=== PATIENT | female | born 1990 | race Two or more races ===

== ENCOUNTER 2024-07-23 21:32 | Emergency (ER) | payer SELFPAY ==
--- NOTE | ~2024-07-23 | CT_ITS ---
CLINICAL INDICATION: Abdominal and back pain COMPARISON: None. TECHNIQUE: Multiple contiguous axial images of the abdomen and pelvis were performed following the ad ministration of with 100 mL Omnipaque-350 intravenous contrast The dose-length product (DLP) was 259.62 mGy-cm. Automated exposure control and iterative reconstruction technique were employed. FINDINGS/OBSERVATIONS: Visualized lower thorax: The bilateral lung bases are clear. The heart is of normal size, without pericardial effusion. Liver: The liver enhances homogeneously and is not enlarged measuring 16 cm in longitudinal dimension. Gallbladder and biliary system: The gallbladder is surgically absent. Pancreas: The pancreas enhances homogeneously without ductal dilatation. Spleen: The spleen enhances homogeneously and is not enlarged measuring 6 cm in longitudinal dimension. Kidneys: The bilateral kidneys enhance symmetrically without hydronephrosis or renal calculi. Adrenal glands: Unremarkable. Gastrointestinal tract: Multiple loops of fluid-filled small bowel with hyperreninemia and trace surrounding inflammatory adrianna nge, findings suggestive of a small bowel enteritis. The colon also is primarily fluid-filled but otherwise unremarkable. Appendix: The appendix is of normal caliber (axial series, image 112). Vasculature: Unremarkable. Lymph nodes: No pathologically enlarged or morphologically suspicious lymph nodes within the retroperitoneum or at the root of the mesentery. Pelvic structures: The bladder is decompressed. The uterus is anteverted and anteflexed, and otherwise unremarkable. Body wall and musculoskeletal: Small fat-containing umbilical hernia. No significant degenerative disease within the lower thoracic or lumbosacral spine. IMPRESSION: Findings suggesting a small bowel enteritis, as detailed above. Reviewed, dictated and finalized at location A. ING DIES FINAL FINISHER
[2024-07-23 21:38] VITALS: BP 104/83; PULSE 109; RESP 16; TEMP 36.7; O2SAT 100
[2024-07-23 22:00] LABS: Basophils Percent Auto 0.1 % (0.2-1.2); Hematocrit 41.9 % (37.0-47.0); Hemoglobin 14.8 g/dL (12.0-15.0); Immature Granulocyte Absolute 0.01 K/mm3 (0.00-0.031); Immature Granulocyte Percent A 0.1 % (0-0.5); Lymphocytes Absolute Auto 0.51 K/mm3 (0.9-3.2); Lymphocytes Percent Auto 5.7 % (18.3-44.2); Mean Corpuscular HGB Conc 35.3 g/dl (32-36); Mean Corpuscular Hemoglobin 31.8 pg (26-34); Mean Corpuscular Volume 90.1 fl (80-100); Monocytes Absolute Auto 0.3 K/mm3 (0.1-0.6); Monocytes Percent Auto 2.8 % (2.6-8.5); Neutrophils Absolute Auto 8.1 K/mm3 (1.3-6.7); Neutrophils Percent Auto 91.3 % (45.5-73.1); Platelet Count Result 218 k/mm3 (150-375); Red Blood Count 4.65 M/mm3 (4.2-5.4); Red Cell Distribution Width 11.6 % (11.5-14.5); White Blood Count 8.9 K/mm3 (4.5-10.0)
[2024-07-23 22:09] LABS: Alanine Aminotransferase 16 U/L (6-35); Albumin Level 4.6 g/dL (3.5-5.1); Alkaline Phosphatase 64 U/L (38-126); Anion Gap 13 mmol/L (4-12); Aspartate Amino Transferase 20 U/L (14-36); Bilirubin,Total 1.6 mg/dL (0.2-1.3); Blood Urea Nitrogen 12 mg/dL (7-17); Calcium 9.1 mg/dL (8.4-10.2); Carbon Dioxide 22 mmol/L (22-30); Chloride 103 mmol/L (98-107); Estimated Glomerular Filt Rate > 60; Glucose 119 mg/dL (65-110); Lipase 30 U/L (23-300); Potassium 3.8 mmol/L (3.4-5.0); Sodium 138 mmol/L (137-145)
--- NOTE | 2024-07-23 22:22 | ED_ITS ---
HPI - Abdominal Pain General Chief Complaint: Abdominal Pain Stated Complaint: Back/Abdominal pain N/V/D Time Seen by Provider: 07/23/24 21:51 Source: patient Mode of arrival: ambulatory Limitations: no limitations History of Present Illness HPI narrative: This is a 34 year old female that presents to the ER for abdominal pain. Ongoing since yesterday. Reports associated vomiting, diarrhea back pain. Also reports myalgias. Denies fevers. Related Data Allergies Allergy/AdvReac Type Severity Reaction Status Date / Time No Known Allergies Allergy Verified 07/23/24 21:36 Review of Systems 2 Review of Systems: CONSTITUTIONAL: Denies fever GASTROINTESTINAL: Reports abdominal pain, nausea, vomiting, and diarrhea. GENITOURINARY: Denies dysuria or hematuria. All systems reviewed & are unremarkable except as noted in HPI and below PMFSH Past Medical History Medical History (Updated 07/24/24 @ 00:19 by Chelsey Rosa PA-C) No active medical problems Surgical History Surgical History (Updated 07/23/24 @ 22:24 by Chelsey Rosa PA-C) History of cholecystectomy Social History Social History (Updated 07/23/24 @ 22:23 by Chelsey Rosa PA-C) Smoking status: Never smoker Exam 2 Narrative: GENERAL: Uncomfortable, well-nourished, and in no acute distress. HEAD: Normocephalic, atraumatic. EYES: EOMI. CHEST: Clear to auscultation. No respiratory distress. No wheezes rales or rhonchi HEART: Regular rate and rhythm. No murmur heard. Normal peripheral pulses. ABDOMEN: Soft, nondistended, normal active bowel sounds. Tender to palpation throughout the abdomen, without guarding EXTREMITIES: Normal range of motion. No edema. SKIN: Warm, dry, no rash. NEURO: No focal deficits. Alert and oriented x3. PSYCH: Normal mood and affect Course Course Emergency Course: Patient and family updated on workup and agree with plan of care Vital Signs Vital signs: Vital Signs Temperature 98.1 F 07/23/24 21:38 Pulse Rate 109 H 07/23/24 21:38 Respiratory Rate 16 07/23/24 21:38 Blood Pressure 104/83 07/23/24 21:38 Pulse Oximetry 100 07/23/24 21:38 Oxygen Delivery Autopap 07/23/24 21:38 Temperature 98.1 F 07/23/24 21:38 Pulse Rate 109 H 07/23/24 21:38 Respiratory Rate 16 07/23/24 21:38 Blood Pressure 104/83 07/23/24 21:38 Pulse Oximetry 100 07/23/24 21:38 Oxygen Delivery Autopap 07/23/24 21:38 MDM - Abdominal Pain MDM Narrative Medical decision making narrative: Patient presents to the emergency department for abdominal pain, nausea vomiting. She is afebrile and nontoxic appearing. Tachycardic upon arrival, this normalized with IV fluids. Cbc without leukocytosis. Metabolic panel without concerning findings. Urine without evidence of infection. Red blood cells due to patient currently being on her menstrual cycle. CT abdomen and pelvis shows findings of likely gastroenteritis. Patient hydrated with IV fluids and given antiemetic with relief. Updated on her workup. Agrees with plan of care. She is to follow up with primary provider. She was given warnings to return to the ER Differential Diagnosis Differential diagnosis: Likely abdominal pain, acute appendicitis, calculus of kidney, gastroenteritis and other (uti) Lab Data Attestation: I reviewed the patient's lab results. 07/23/24 21:52 07/23/24 21:52 Labs: Lab Results 07/23/24 Range/Units 21:52 WBC 8.9 (4.5-10.0) K/mm3 RBC 4.65 (4.2-5.4) M/mm3 Hgb 14.8 (12.0-15.0) g/dL Hct 41.9 (37.0-47.0) % MCV 90.1 (80-100) fl MCH 31.8 (26-34) pg MCHC 35.3 (32-36) g/dl RDW 11.6 (11.5-14.5) % Plt Count 218 (150-375) k/mm3 MPV 9.0 (7.4-10.4) fl Immature Gran % (Auto) 0.1 (0-0.5) % Neut % (Auto) 91.3 H (45.5-73.1) % Lymph % (Auto) 5.7 L (18.3-44.2) % [place] % (Auto) 2.8 (2.6-8.5) % Eos % (Auto) 0.0 (0-4.4) % Baso % (Auto) 0.1 L (0.2-1.2) % Lymph # (Auto) 0.51 L (0.9-3.2) K/mm3 [place] # (Auto) 0.3 (0.1-0.6) K/mm3 Eos # (Auto) 0.0 (0-0.3) K/mm3 Baso # (Auto) 0.0 (0.0-0.1) K/mm3 Abs Immat Gran (auto) 0.01 (0.00-0.031) K/mm3 Absolute Neuts (auto) 8.1 H (1.3-6.7) K/mm3 Absolute Nucleated RBC 0.000 (0.0-0.012) K/mm3 Nucleated RBC % 0.0 (0.0-0.2) % Sodium 138 (137-145) mmol/L Potassium 3.8 (3.4-5.0) mmol/L Chloride 103 (98-107) mmol/L Carbon Dioxide 22 (22-30) mmol/L Anion Gap 13 H (4-12) mmol/L BUN 12 (7-17) mg/dL Creatinine 0.64 L (0.7-1.0) mg/dL Estim Creat Clear Calc Not Reportable Estimated GFR > 60 (59 - ) Glucose 119 H (65-110) mg/dL Calcium 9.1 (8.4-10.2) mg/dL Total Bilirubin 1.6 H (0.2-1.3) mg/dL AST 20 (14-36) U/L ALT 16 (6-35) U/L Alkaline Phosphatase 64 (38-126) U/L Total Protein 9.0 H (6.3-8.2) g/dL Albumin 4.6 (3.5-5.1) g/dL Lipase 30 (23-300) U/L Imaging Data Radiologist's impression: ITS Impressions Abdomen/Pelvis CT 07/23/24 23:35 IMPRESSION: Findings suggesting a small bowel enteritis, as detailed above. Critical Care Time Critical Care Time Critical Care Time: No Discharge Plan Discharge Clinical Impression: Gastroenteritis Patient Disposition: Home, Self-Care Condition: Stable Instructions: Gastroenteritis (ED) Additional Instructions: Return to the ER if you experience fever, worsening abdominal pain with nausea and vomiting, you are unable to keep down liquids or solids, or any other symptoms that are concerning to you Small, frequent meals. [place] diet. Remain well hydrated. Ondansetron as needed for nausea Follow up with primary care doctor Patient Language: Algerian Prescriptions: New ondansetron 4 mg tablet,disintegrating 4 mg PO Q8H PRN (Reason: nausea and vomiting) Qty: 10 0RF Follow-up/Referrals: Samantha Mccarty DO [Physician] - PHYSICIAN,PAINTER DECORATOR [Primary Care Provider] -
[2024-07-23] MEDS: ONDANSETRON INJ 4 MG/2 ML VIAL IV PUSH (22:30)
[2024-07-23] MEDS: FAMOTIDINE 20 MG/2 ML VIAL IV PUSH (22:30)
[2024-07-23] MEDS: SODIUM CHLORIDE 0.9% IV 1,000 ML 999 ML IV CONT ×2 (22:30→23:41)
[2024-07-23 23:03] LABS: BEDSIDEPREGUCG Negative (Negative)
[2024-07-23 23:11] LABS: Bacteria Urine Rare /hpf; Non Pathogenic Casts 0-2; RBC Urine >100 /hpf (0-2); Squamous Epithelial Cell Urine Occasional /hpf (Few); WBC Urine 0-5 /hpf (0-3)
[2024-07-23 23:19] LABS: Add Urine Microscopic? YES; Appearance Urine Turbid (Clear); Bilirubin Urine 1+ (Negative); Blood Urine 3+ (Negative); Color Urine Dark Amber (Yellow); Glucose Urine UA Negative (Negative); Ketones Urine 1+ mg/dL (Negative); Leukocyte Esterase Ur Trace LEU/UL (Negative); Nitrate Urine Negative (Negative); Protein Urine 1+ mg/dL (Negative); Specific Grav Ur 1.038 (1.001-1.035); pH Urine 5.5 (5.0-9.0)
[2024-07-23 23:24] LABS: Influenza A QL RT-PCR Negative (Negative); Influenza B QL RT-PCR Negative (Negative); SARS-CoV-2 RNA PCR Negative (Negative)
[2024-07-23 23:50] VITALS: BP 100/59; PULSE 79; RESP 15; O2SAT 100
== END 2024-07-24 00:44 | disposition home or self-care (01) ==
PROVIDERS: Emergency Medicine; Emergency Provider Physician Assistant
DX: K52.9 Noninfective gastroenteritis and colitis, unspecified (principal); Z90.49 Acquired absence of other specified parts of digestive tract
CPT/HCPCS: 36415; 74177; 80053; 81001; 81025; 83690; 85025; 87636; 96361; 96374; 96375; 99284; J2405; J7030; Q9967